=== PATIENT | female | born 1980 ===

== ENCOUNTER 2017-10-07 14:33 | Emergency (ER) | payer BC ==
[2017-10-07 15:03] VITALS: BMI 22.2
[2017-10-07 15:05] VITALS: BP 117/79; PULSE 71; RESP 16; TEMP 98; O2SAT 99
--- NOTE | 2017-10-07 15:26 | ED PDOC ---
HPI: General Adult Time Seen by Provider: 10/07/17 15:08 Chief Complaint (Nursing): ENT Problem Chief Complaint (Provider): Throat Pain History Per: Patient Additional Complaint(s): 36 year old female presents to the ED for evaluation of throat pain x 2 days. She reports she has difficulty swallowing. Patient denies fever, coughing or any sick contacts. PMD: none Past Medical History Reviewed: Historical Data, Nursing Documentation, Vital Signs Vital Signs: Last Vital Signs Temp 98 F 10/07/17 15:03 Pulse 71 10/07/17 15:03 Resp 16 10/07/17 15:03 BP 117/79 10/07/17 15:03 Pulse Ox 99 10/07/17 15:35 - Medical History PMH: No Chronic Diseases - Surgical History Surgical History: No Surg Hx - Family History Family History: States: No Known Family Hx - Living Arrangements Living Arrangements: With Family - Social History Current smoker - smoking cessation education provided: No Alcohol: None Drugs: Denies - Home Medications Home Medications: Ambulatory Orders Medication Instructions Recorded Azithromycin [Zithromax] 250 mg PO DAILY #6 tab 10/07/17 Ibuprofen [Motrin Tab] 800 mg PO Q8 PRN #20 tab 10/07/17 - Allergies Allergies/Adverse Reactions: Allergies Allergy/AdvReac Type Severity Reaction Status Date / Time No Known Allergies Allergy Verified 10/07/17 15:04 Review of Systems ROS Statement: Except As Marked, All Systems Reviewed And Found Negative Constitutional: Negative for: Fever ENT: Positive for: Throat Pain, Throat Swelling Respiratory: Negative for: Cough Gastrointestinal: Negative for: Nausea, Vomiting Physical Exam - Reviewed Nursing Documentation Reviewed: Yes Vital Signs Reviewed: Yes - Physical Exam Appears: Positive for: Well, Non-toxic, No Acute Distress Head Exam: Positive for: ATRAUMATIC, NORMAL INSPECTION, NORMOCEPHALIC Skin: Positive for: Normal Color. Negative for: Rash Eye Exam: Positive for: Normal appearance ENT: Positive for: Tonsillar Swelling (bilaterally with erythema) Cardiovascular/Chest: Positive for: Regular Rate, Rhythm Respiratory: Positive for: Normal Breath Sounds Lymphatic: Positive for: Adenopathy (Bilateral anterior cervical lymphadenopathy ) Neurologic/Psych: Positive for: Alert, Oriented (x3) - Laboratory Results Urine POC: Negative - ECG O2 Sat by Pulse Oximetry: 99 (RA) Pulse Ox Interpretation: Normal Medical Decision Making Medical Decision Making: Time: 1523 Initial Impression: 36 year old female with sore throat Initial Plan: --Urine --Throat Culture --Patient given Decadron Inj 10mg Prescriptions for Zithromax and Motrin provided. Patient was advised to follow- up with clinic or primary doctor in 2-3 days. Scribe Attestation: Documented by Esteban Brandt, acting as a scribe for Marguerite Ball PA-C Provider Scribe Attestation: All medical record entries made by the Scribe were at my direction and personally dictated by me. I have reviewed the chart and agree that the record accurately reflects my personal performance of the history, physical exam, medical decision making, and the department course for this patient. I have also personally directed, reviewed, and agree with the discharge instructions and disposition. Disposition - Clinical Impression Clinical Impression: Pharyngitis - Patient ED Disposition Is Patient to be Admitted: No Counseled Patient/Family Regarding: Studies Performed, Diagnosis, Need For Followup, Rx Given - Disposition Referrals: [facility] [Outside] Disposition: Routine/Home Disposition Time: 15:55 Condition: STABLE Additional Instructions: Take rx meds as directed. Drink plenty of fluids. Follow up with primary care doctor or clinic in 2-3 days. Prescriptions: Azithromycin [Zithromax] 250 mg PO DAILY #6 tab Ibuprofen [Motrin Tab] 800 mg PO Q8 PRN #20 tab PRN Reason: Pain, Moderate (4-7) Instructions: Sore Throat in Adults Forms: [employer] (Urdu)
== END 2017-10-07 16:28 | disposition home or self-care (01) ==
LOC: H.ER 14:33
DX: J02.9 Acute pharyngitis, unspecified (principal); R13.10 Dysphagia, unspecified
CPT/HCPCS: 87070; 96372; 99282; J1100